=== PATIENT | female | born 1960 | race Caucasian/White ===

== ENCOUNTER 2017-05-24 21:16 | Emergency (ER) | payer OTHER ==
[2017-05-24 21:52] VITALS: BP 150/63
--- NOTE | 2017-05-24 22:04 | RADIOLOGY REPORT (SQ) ---
EXAM DESCRIPTION: CHEST PA/LAT COMPLETED DATE/TIME: 05/24/2017 9:57 pm REASON FOR STUDY: TROUBLE BREATHING COMPARISON: None. EXAM PARAMETERS: NUMBER OF VIEWS: two views TECHNIQUE: Digital Frontal and Lateral radiographic views of the chest acquired. RADIATION DOSE: NA LIMITATIONS: none FINDINGS: LUNGS AND PLEURA: No opacities, masses or pneumothorax. No pleural effusion. MEDIASTINUM AND HILAR STRUCTURES: No masses or contour abnormalities. HEART AND VASCULAR STRUCTURES: Heart normal size. No evidence for failure. BONES: No acute findings. HARDWARE: None in the chest. OTHER: No other significant finding. IMPRESSION: NO SIGNIFICANT RADIOGRAPHIC FINDING IN THE CHEST. TECHNICAL DOCUMENTATION: JOB ID: [id number] [employer]- All Rights Reserved
[2017-05-24] MEDS ORDERED: PREDNISONE 20 MG TABLET PO ONE (22:22)
[2017-05-24] MEDS ORDERED: IPRATROPIUM/ALBUTEROL 0.5-2.5 MG/3 ML AMPUL NEB ONE (22:22)
[2017-05-24] MEDS ORDERED: AZITHROMYCIN 250 MG TABLET PO ONE (22:22)
--- NOTE | 2017-05-24 22:26 | ER Document Report ---
ED General - General Chief Complaint: Breathing Difficulty Stated Complaint: TROUBLE BREATHING Time Seen by Provider: 05/24/17 22:09 Notes: Patient is a 57-year-old female comes emergency department for chief complaint of cough for the past 2 days, she states she is starting to get sinus pressure, she has occasional wheezing, she smokes, she has a past medical history of asthma and COPD, she uses an albuterol inhaler at home. She denies fever. She denies chest pain, vomiting, or any other symptoms at this time. She has 2 sick family members with similar symptoms. TRAVEL OUTSIDE OF THE [place] IN LAST 30 DAYS: No Past Medical History - General Information source: Patient - Social History Smoking Status: Current Every Day Smoker Smoking Education Provided: Yes - <3 min Frequency of alcohol use: None Drug Abuse: None Lives with: Family Family History: Reviewed & Not Pertinent Patient has suicidal ideation: No Patient has homicidal ideation: No Pulmonary Medical History: Reports: Hx Asthma, Hx COPD Renal/ Medical History: Denies: Hx Peritoneal Dialysis - Immunizations Immunizations up to date: Yes Hx Diphtheria, Pertussis, Tetanus Vaccination: Yes Review of Systems - Review of Systems Constitutional: See HPI EENT: See HPI Cardiovascular: No symptoms reported Respiratory: See HPI Gastrointestinal: No symptoms reported Genitourinary: No symptoms reported Female Genitourinary: No symptoms reported Musculoskeletal: No symptoms reported Skin: No symptoms reported Hematologic/Lymphatic: No symptoms reported Neurological/Psychological: No symptoms reported Physical Exam - Vital signs Vitals: Temp Pulse Resp BP Pulse Ox 98.0 F 58 L 17 150/63 H 98 05/24/17 21:30 05/24/17 21:30 05/24/17 21:30 05/24/17 21:30 05/24/17 21:30 Interpretation: Normal - General General appearance: Appears well, Alert In distress: None - HEENT Head: Normocephalic, Atraumatic Eyes: Normal Conjunctiva: Normal Extraocular movements intact: Yes Eyelashes: Normal Pupils: PERRL Ears: Normal External canal: Normal Tympanic membrane: Normal Sinus: Maxillary - Tenderness over both maxillary sinuses, patient sounds congested Nasal: Normal Mouth/Lips: Normal Mucous membranes: Normal Pharynx: Normal Neck: Normal - Respiratory Respiratory status: No respiratory distress. No: Respiratory distress, Tachypnea Chest status: Nontender Breath sounds: Nonproductive cough, Wheezing - End expiratory wheezes, otherwise mildly decreased but good air movement on auscultation Chest palpation: Normal - Cardiovascular Rhythm: Regular Heart sounds: Normal auscultation Murmur: No - Abdominal Inspection: Normal Distension: No distension Bowel sounds: Normal Tenderness: Nontender Organomegaly: No organomegaly - Back Back: Normal, Nontender - Extremities General upper extremity: Normal inspection, Nontender, Normal color, Normal ROM , Normal temperature General lower extremity: Normal inspection, Nontender, Normal color, Normal ROM , Normal temperature, Normal weight bearing. No: Daniel's sign - Neurological Neuro grossly intact: Yes Cognition: Normal Orientation: AAOx4 [place] Coma Scale Eye Opening: Spontaneous [place] Coma Scale Verbal: Oriented [place] Coma Scale Motor: Obeys Commands [place] Coma Scale Total: 15 Speech: Normal Motor strength normal: LUE, RUE, LLE, RLE Sensory: Normal - Psychological Associated symptoms: Normal affect, Normal mood - Skin Skin Temperature: Warm Skin Moisture: Dry Skin Color: Normal Course - Re-evaluation Re-evalutation: Patient initially with some expiratory wheezing, she has a nonproductive cough, no respiratory distress. No hypoxia. No tachycardia. No fever. Chest x-ray unremarkable. Patient with resolution of wheezing after breathing treatment. Asymptomatic on reevaluation. Patient will be treated for COPD exacerbation. She also has tenderness over her sinuses. Discussed smoking cessation, treatment with prednisone and azithromycin, follow-up, return precautions. Patient states understanding and agreement. - Vital Signs Vital signs: Temp Pulse Resp BP Pulse Ox 98.8 F 78 18 150/63 H 96 05/25/17 00:41 05/25/17 00:41 05/25/17 00:41 05/24/17 21:30 05/25/17 00:41 Discharge - Discharge Clinical Impression: Cough, Wheezing, Tobacco abuse Sinusitis Qualifiers: Sinusitis location: unspecified location Chronicity: acute Recurrence: not specified as recurrent Qualified Code(s): J01.90 - Acute sinusitis, unspecified Condition: Stable Disposition: HOME, SELF-CARE Additional Instructions: Your chest x-ray does not show any concerning findings. Your examination and symptoms are consistent with bronchitis, COPD exacerbation, and sinus infection. Recommendation is to take the prednisone as prescribed, take the azithromycin antibiotic as prescribed, continue albuterol inhaler, follow-up with primary care. Return to the emergency department if you worsen in any way including difficulty breathing, spiking fever, or any other concerning symptoms. Prescriptions: Azithromycin [Zithromax 250 mg Tablet] 250 mg PO DAILY #4 tablet Prednisone 60 mg PO DAILY #15 tablet Forms: Smoking Cessation Education
== END 2017-05-25 00:41 | disposition home or self-care (01) ==
LOC: ER 21:16
DX: J01.90 Acute sinusitis, unspecified (principal); R06.2 Wheezing; R05 Cough; F17.210 Nicotine dependence, cigarettes, uncomplicated; J44.9 Chronic obstructive pulmonary disease, unspecified
CPT/HCPCS: 94640; 99285; 71020; J7512; J7620